=== PATIENT | female | born 1955 | race Native Hawaiian/Other Pacific Islander ===

== ENCOUNTER → 2016-09-15 | Outpatient (CLI) | payer OTHER ==
[2016-09-15 10:40] LABS: Basophils # (auto) 0 uL; Basophils % (auto) 0.3 % (0.0-2.0); Eosinophils # (auto) 0.3 uL; Hematocrit 45.2 % (36.0-46.0); Hemoglobin 15.4 g/dL (12.2-16.2); Lymphocytes # (auto) 1.8 uL; Lymphocytes % (auto) 18.5 % (10.0-50.0); Mean Corpuscular Hemoglobin 30.8 pg (28.0-32.0); Mean Corpuscular Volume 90.4 fL (80.0-100.0); Mean Platelet Volume 8.8 fL (7.4-10.4); Monocytes # (auto) 0.5 uL; Monocytes % (auto) 4.5 % (0.0-12.0); Neutrophils # (auto) 7.4 uL; Neutrophils % (auto) 73.7 % (37.0-80.0); Platelet Count (auto) 354 10^3/uL (140-450); Red Cell Distribution Width 11.9 % (11.6-16.0)
[2016-09-15 10:52] LABS: Urine Bilirubin Negative (Negative); Urine Blood Negative /uL (Negative); Urine Color Yellow (Yellow); Urine Glucose Normal (Normal); Urine Ketone Negative (Negative); Urine Mucus FEW (None Seen); Urine Nitrite Negative (Negative); Urine RBC <1 /hpf (0 - 4); Urine Squamous Epithelial Cell FEW /hpf (<5)
[2016-09-15 11:08] LABS: Albumin 3.6 g/dL (3.4-5.0); Bilirubin, Total 0.5 mg/dL (0.2-1.0); Calcium 9.3 mg/dL (8.5-10.1); Potassium 3.3 mmol/L (3.5-5.1); Total Protein 8.7 g/dL (6.4-8.2)
== END | disposition home or self-care (01) ==
LOC: LAB 09:55
PROVIDERS: ATTEND Internal Medicine
DX: Z00.00 Encounter for general adult medical examination without abnormal findings (principal); I10 Essential (primary) hypertension; E78.5 Hyperlipidemia, unspecified; E11.9 Type 2 diabetes mellitus without complications; E55.9 Vitamin D deficiency, unspecified
CPT/HCPCS: 36415; 80053; 80061; 81001; 82043; 82306; 83036; 84439; 84443; 84481; 85025

== ENCOUNTER → 2017-03-10 | Outpatient (CLI) | payer OTHER ==
[2017-03-10 09:41] LABS: Albumin 3.9 g/dL (3.4-5.0); BUN/Creatinine Ratio 18.5; Bilirubin, Total 0.7 mg/dL (0.2-1.0); Calcium 9.4 mg/dL (8.5-10.1); Potassium 3.5 mmol/L (3.5-5.1); Total Protein 8.4 g/dL (6.4-8.2); Urine Bacteria NONE SEEN /hpf (None Seen); Urine Blood Negative /uL (Negative); Urine Mucus FEW (None Seen); Urine Specific Gravity 1.019 (1.001-1.035); Urine WBC <1 /hpf (0 - 5)
== END | disposition home or self-care (01) ==
LOC: LAB 08:41
PROVIDERS: ATTEND Internal Medicine
DX: I10 Essential (primary) hypertension (principal); E11.9 Type 2 diabetes mellitus without complications; E78.2 Mixed hyperlipidemia
CPT/HCPCS: 36415; 80053; 80061; 81001; 83036

== ENCOUNTER 2022-06-30 12:11 | Inpatient (IN) | payer OTHER ==
[~2022-06-30] VITALS: Ht 165.1 cm; Wt 80.1 kg
[2022-06-30] MEDS ORDERED: ASPirin 81 mg TAB PO ONE (12:30)
[2022-06-30 12:38] LABS: Basophils # (auto) 0.1 10 ^3/uL (0-0.2); Basophils % (auto) 0.7 % (0.0-2.0); Eosinophils # (auto) 0.1 10 ^3/uL (0-0.8); Eosinophils % (auto) 0.7 % (0.0-7.0); Hematocrit 38.2 % (36.0-46.0); Hemoglobin 13.6 g/dL (12.2-16.2); Lymphocytes # (auto) 1.8 10 ^3/uL (0.4-5.4); Lymphocytes % (auto) 13.7 % (10.0-50.0); Mean Corpuscular Hemoglobin 31.6 pg (28.0-32.0); Mean Corpuscular Hgb Conc. 35.5 g/dL (32.0-36.0); Monocytes # (auto) 0.3 10 ^3/uL (0-1.3); Monocytes % (auto) 2.6 % (0.0-12.0); Neutrophils # (auto) 10.5 10 ^3/uL (1.6-8.6); Neutrophils % (auto) 82.3 % (37.0-80.0); Nucleated Red Blood Cells % 0.1 %; Red Cell Distribution Width 12.5 % (11.8-14.3); White Blood Cell 12.8 10^3/uL (4.4-10.8)
[2022-06-30 12:54] LABS: Albumin 3.6 g/dL (3.4-5.0); BUN/Creatinine Ratio 19.8; Calcium 9.2 mg/dL (8.5-10.1); Magnesium 1.5 mg/dL (1.6-2.6); Potassium 3.4 mmol/L (3.5-5.1)
[2022-06-30 12:57] LABS: Bilirubin, Total 1.5 mg/dL (0.2-1.0)
[2022-06-30] MEDS ORDERED: MORPHINE SULFATE INJ 2 MG/ml SYRG IV ONE (15:30)
[2022-06-30] MEDS ORDERED: PIPERACILLIN-TAZOB 3.375GM 100 ML IV ONE (15:30)
[2022-06-30] MEDS ORDERED: ONDANSETRON HCL 4 MG/2 ML VIAL IV ONE (15:30)
[2022-06-30] MEDS ORDERED: D5W/SOD CHL 0.45%/KCL 20MEQ 1,000 ML IV ONE (16:15)
[2022-06-30] MEDS ORDERED: NITROGLYCERIN 0.4 MG SL TAB SL PRN (18:00)
[2022-06-30] MEDS ORDERED: MORPHINE SULFATE INJ 2 MG/ml SYRG IV PRN ×2 (18:00)
[2022-06-30] MEDS ORDERED: ONDANSETRON HCL 4 MG/2 ML VIAL IV PRN (18:00)
[2022-06-30 18:36] LABS: Urine Bacteria NONE SEEN /hpf (None Seen); Urine Blood Negative /uL (Negative); Urine Mucus FEW (None Seen); Urine Specific Gravity 1.019 (1.001-1.035); Urine WBC 2 /hpf (0 - 5)
[2022-06-30] MEDS: D5W/SOD CHL 0.45% 1,000 ML IV SCH (19:30)
[2022-06-30] MEDS: PIPERACILLIN-TAZOB 3.375GM 100 ML IV SCH (19:30)
[2022-06-30 19:51] LABS: INR 1.03 (0.9-1.15); Partial Thromboplastin Time 23.4 sec (24.6-33.4)
[2022-07-01] MEDS: PIPERACILLIN-TAZOB 3.375GM 100 ML IV SCH ×4 (00:15→18:16)
[2022-07-01 05:23] LABS: Basophils # (auto) 0 10 ^3/uL (0-0.2); Basophils % (auto) 0.1 % (0.0-2.0); Eosinophils # (auto) 0 10 ^3/uL (0-0.8); Eosinophils % (auto) 0.3 % (0.0-7.0); Hematocrit 35.1 % (36.0-46.0); Hemoglobin 12.4 g/dL (12.2-16.2); Lymphocytes # (auto) 0.7 10 ^3/uL (0.4-5.4); Lymphocytes % (auto) 5.3 % (10.0-50.0); Mean Corpuscular Hemoglobin 31.8 pg (28.0-32.0); Mean Corpuscular Hgb Conc. 35.4 g/dL (32.0-36.0); Mean Corpuscular Volume 89.9 fL (80.0-100.0); Monocytes # (auto) 0.7 10 ^3/uL (0-1.3); Monocytes % (auto) 5.8 % (0.0-12.0); Neutrophils # (auto) 10.9 10 ^3/uL (1.6-8.6); Neutrophils % (auto) 88.5 % (37.0-80.0); Red Cell Distribution Width 12.5 % (11.8-14.3); White Blood Cell 12.3 10^3/uL (4.4-10.8)
[2022-07-01 05:42] LABS: Albumin 3.2 g/dL (3.4-5.0); Calcium 8.3 mg/dL (8.5-10.1); Potassium 3.3 mmol/L (3.5-5.1)
[2022-07-01 05:46] LABS: BUN/Creatinine Ratio 15.6; Bilirubin, Total 3.8 mg/dL (0.2-1.0); Total Protein 6.7 g/dL (6.4-8.2)
[2022-07-01 08:55] LABS: Amylase 91 U/L (25-115); Lipase 316 U/L (73-393)
[2022-07-01] MEDS: D5W/SOD CHL 0.45% 1,000 ML IV SCH (11:14)
[2022-07-01] MEDS: POTASSIUM CHLORIDE 40 MEQ in SOD CHL 0.45% 1,000 ML IV SCH (13:09)
[2022-07-01] MEDS ORDERED: ASPI-325 PO (15:37)
[2022-07-01] MEDS ORDERED: METF-916 PO (15:37)
[2022-07-01] MEDS ORDERED: ATOR40TA52 PO (15:37)
[2022-07-01] MEDS ORDERED: LOSA100T30 PO (15:37)
[2022-07-01] MEDS ORDERED: AMLO-489 PO (15:37)
[2022-07-01 16:53] VITALS: BP 147/52
[2022-07-01 16:55] VITALS: BP 147/52
[2022-07-01 22:00] VITALS: BP 123/73
[2022-07-02] MEDS: PIPERACILLIN-TAZOB 3.375GM 100 ML IV SCH ×4 (00:27→18:46)
[2022-07-02] MEDS: D5W/SOD CHL 0.45% 1,000 ML IV SCH ×2 (03:20→20:00)
[2022-07-02 05:00] VITALS: BP 124/54
[2022-07-02 06:26] LABS: Basophils # (auto) 0 10 ^3/uL (0-0.2); Basophils % (auto) 0.4 % (0.0-2.0); Eosinophils # (auto) 0.3 10 ^3/uL (0-0.8); Eosinophils % (auto) 3.4 % (0.0-7.0); Hematocrit 37.6 % (36.0-46.0); Hemoglobin 13.4 g/dL (12.2-16.2); Lymphocytes # (auto) 1.1 10 ^3/uL (0.4-5.4); Lymphocytes % (auto) 13.5 % (10.0-50.0); Mean Corpuscular Hemoglobin 32.1 pg (28.0-32.0); Mean Corpuscular Hgb Conc. 35.6 g/dL (32.0-36.0); Mean Corpuscular Volume 90.1 fL (80.0-100.0); Monocytes # (auto) 0.5 10 ^3/uL (0-1.3); Monocytes % (auto) 5.7 % (0.0-12.0); Neutrophils # (auto) 6.1 10 ^3/uL (1.6-8.6); Red Blood Cells 4.17 10^6/uL (4.0-5.20); Red Cell Distribution Width 12.8 % (11.8-14.3); White Blood Cell 7.9 10^3/uL (4.4-10.8)
[2022-07-02 07:06] LABS: Albumin 3.6 g/dL (3.4-5.0); Potassium 3.5 mmol/L (3.5-5.1)
[2022-07-02 07:12] LABS: BUN/Creatinine Ratio 11.9; Bilirubin, Total 5.2 mg/dL (0.2-1.0); Total Protein 7.3 g/dL (6.4-8.2)
[2022-07-02 08:00] VITALS: BP_SYST 118; BP_SYST 136; BP_DIAS 61; BP_DIAS 79
[2022-07-02] MEDS: POTASSIUM CHLORIDE 40 MEQ in SOD CHL 0.45% 1,000 ML IV SCH ×2 (09:27→17:15)
[2022-07-02 14:16] VITALS: BP 125/62
[2022-07-02 16:30] VITALS: BP 145/66
[2022-07-02 22:00] VITALS: BP 153/60
[2022-07-03] MEDS: PIPERACILLIN-TAZOB 3.375GM 100 ML IV SCH ×5 (00:13→23:47)
[2022-07-03] MEDS: POTASSIUM CHLORIDE 40 MEQ in SOD CHL 0.45% 1,000 ML IV SCH (04:18)
[2022-07-03 05:00] VITALS: BP_SYST 132; BP_SYST 158; BP_DIAS 62; BP_DIAS 76
[2022-07-03 06:01] LABS: Basophils # (auto) 0.1 10 ^3/uL (0-0.2); Basophils % (auto) 0.9 % (0.0-2.0); Eosinophils # (auto) 0.2 10 ^3/uL (0-0.8); Eosinophils % (auto) 3.5 % (0.0-7.0); Hematocrit 37.2 % (36.0-46.0); Hemoglobin 12.9 g/dL (12.2-16.2); Lymphocytes # (auto) 1.4 10 ^3/uL (0.4-5.4); Lymphocytes % (auto) 21.7 % (10.0-50.0); Mean Corpuscular Hemoglobin 31.5 pg (28.0-32.0); Mean Corpuscular Hgb Conc. 34.6 g/dL (32.0-36.0); Mean Corpuscular Volume 91.1 fL (80.0-100.0); Monocytes # (auto) 0.5 10 ^3/uL (0-1.3); Monocytes % (auto) 8.2 % (0.0-12.0); Neutrophils # (auto) 4.1 10 ^3/uL (1.6-8.6); Neutrophils % (auto) 65.7 % (37.0-80.0); Nucleated Red Blood Cells % 0.1 %; Red Blood Cells 4.08 10^6/uL (4.0-5.20); Red Cell Distribution Width 12.6 % (11.8-14.3); White Blood Cell 6.3 10^3/uL (4.4-10.8)
[2022-07-03 06:19] LABS: Potassium 3.7 mmol/L (3.5-5.1)
[2022-07-03 06:29] LABS: Albumin 3.3 g/dL (3.4-5.0); BUN/Creatinine Ratio 12.5; Calcium 9.2 mg/dL (8.5-10.1)
[2022-07-03 06:57] LABS: Bilirubin, Total 2.5 mg/dL (0.2-1.0); Total Protein 7.4 g/dL (6.4-8.2)
[2022-07-03 08:33] VITALS: BP 147/66
[2022-07-03] MEDS: ASPirin 81 mg TAB PO SCH (09:33)
[2022-07-03] MEDS: LOSARTAN POTASSIUM 25 MG TAB PO SCH (09:35)
[2022-07-03] MEDS: amLODIPine BESYLATE 5 MG TAB PO SCH (09:36)
[2022-07-03 13:00] VITALS: BP_SYST 118; BP_SYST 136; BP_DIAS 72; BP_DIAS 79
[2022-07-03] MEDS: D5W/SOD CHL 0.45% 1,000 ML IV SCH (14:04)
[2022-07-03 17:00] VITALS: BP 166/70
[2022-07-03] MEDS ORDERED: hydrALAZINE HCL 20 MG/ML VL IV PRN ×2 (17:30→22:00)
[2022-07-03] MEDS: metFORMIN HYDROCHLORIDE 500 MG TAB PO SCH (18:17)
[2022-07-03] MEDS ORDERED: hydrALAZINE HCL 20 MG/ML VL IV ONE (22:00)
[2022-07-03 22:15] VITALS: BP 170/64
[2022-07-03] MEDS: ATORVASTATIN 20 MG TAB PO SCH (22:19)
[2022-07-03 23:20] VITALS: BP 152/77
[2022-07-04] MEDS: POTASSIUM CHLORIDE 40 MEQ in SOD CHL 0.45% 1,000 ML IV SCH ×2 (00:42→22:00)
[2022-07-04 05:00] VITALS: BP 133/59
[2022-07-04] MEDS: D5W/SOD CHL 0.45% 1,000 ML IV SCH ×2 (05:20→22:00)
[2022-07-04] MEDS: PIPERACILLIN-TAZOB 3.375GM 100 ML IV SCH ×3 (05:58→18:20)
[2022-07-04 06:02] LABS: Basophils # (auto) 0.1 10 ^3/uL (0-0.2); Eosinophils # (auto) 0.2 10 ^3/uL (0-0.8); Eosinophils % (auto) 2.7 % (0.0-7.0); Hematocrit 38.7 % (36.0-46.0); Hemoglobin 13.5 g/dL (12.2-16.2); Lymphocytes # (auto) 1.7 10 ^3/uL (0.4-5.4); Lymphocytes % (auto) 24.6 % (10.0-50.0); Mean Corpuscular Hemoglobin 31.8 pg (28.0-32.0); Mean Corpuscular Hgb Conc. 34.9 g/dL (32.0-36.0); Monocytes # (auto) 0.6 10 ^3/uL (0-1.3); Monocytes % (auto) 8.7 % (0.0-12.0); Neutrophils # (auto) 4.4 10 ^3/uL (1.6-8.6); Red Blood Cells 4.25 10^6/uL (4.0-5.20); Red Cell Distribution Width 12.8 % (11.8-14.3); White Blood Cell 6.9 10^3/uL (4.4-10.8)
[2022-07-04 06:21] LABS: Albumin 3.3 g/dL (3.4-5.0); Calcium 9.5 mg/dL (8.5-10.1)
[2022-07-04 06:25] LABS: Potassium 3.7 mmol/L (3.5-5.1)
[2022-07-04 06:26] LABS: Bilirubin, Total 2.2 mg/dL (0.2-1.0); Total Protein 7.6 g/dL (6.4-8.2)
[2022-07-04] MEDS ORDERED: hydrALAZINE HCL 20 MG/ML VL IV PRN (07:45)
[2022-07-04 08:19] VITALS: BP 124/48
[2022-07-04] MEDS: metFORMIN HYDROCHLORIDE 500 MG TAB PO SCH ×2 (09:46→18:20)
[2022-07-04] MEDS: ASPirin 81 mg TAB PO SCH (09:46)
[2022-07-04] MEDS: LOSARTAN POTASSIUM 25 MG TAB PO SCH (09:48)
[2022-07-04] MEDS: amLODIPine BESYLATE 5 MG TAB PO SCH (09:49)
[2022-07-04 12:41] VITALS: BP 138/65
[2022-07-04 17:12] VITALS: BP 143/60
[2022-07-04 21:55] VITALS: BP 162/69
[2022-07-04] MEDS: ATORVASTATIN 20 MG TAB PO SCH (22:00)
[2022-07-05] MEDS: PIPERACILLIN-TAZOB 3.375GM 100 ML IV SCH ×4 (00:04→18:15)
[2022-07-05 05:00] VITALS: BP 136/75
[2022-07-05 06:38] LABS: Potassium 3.8 mmol/L (3.5-5.1)
[2022-07-05 06:45] LABS: Albumin 3.4 g/dL (3.4-5.0); Calcium 9.2 mg/dL (8.5-10.1)
[2022-07-05 06:48] LABS: Bilirubin, Total 1.8 mg/dL (0.2-1.0); Total Protein 6.9 g/dL (6.4-8.2)
[2022-07-05 07:46] LABS: Basophils # (auto) 0.1 10 ^3/uL (0-0.2); Basophils % (auto) 0.9 % (0.0-2.0); Eosinophils # (auto) 0.2 10 ^3/uL (0-0.8); Eosinophils % (auto) 2.8 % (0.0-7.0); Hematocrit 39.3 % (36.0-46.0); Hemoglobin 13.3 g/dL (12.2-16.2); Lymphocytes # (auto) 1.8 10 ^3/uL (0.4-5.4); Lymphocytes % (auto) 28.8 % (10.0-50.0); Mean Corpuscular Hemoglobin 31.2 pg (28.0-32.0); Mean Corpuscular Hgb Conc. 33.9 g/dL (32.0-36.0); Mean Corpuscular Volume 91.9 fL (80.0-100.0); Monocytes # (auto) 0.5 10 ^3/uL (0-1.3); Monocytes % (auto) 8.4 % (0.0-12.0); Neutrophils # (auto) 3.7 10 ^3/uL (1.6-8.6); Neutrophils % (auto) 59.1 % (37.0-80.0); Red Blood Cells 4.27 10^6/uL (4.0-5.20); Red Cell Distribution Width 12.8 % (11.8-14.3); White Blood Cell 6.3 10^3/uL (4.4-10.8)
[2022-07-05 09:00] VITALS: BP 157/66
[2022-07-05] MEDS: metFORMIN HYDROCHLORIDE 500 MG TAB PO SCH ×2 (09:51→18:15)
[2022-07-05] MEDS: ASPirin 81 mg TAB PO SCH (09:51)
[2022-07-05] MEDS: amLODIPine BESYLATE 5 MG TAB PO SCH (09:51)
[2022-07-05] MEDS: LOSARTAN POTASSIUM 25 MG TAB PO SCH (09:52)
[2022-07-05 12:36] LABS: Hepatitis B Core IgM Negative
[2022-07-05 12:37] LABS: Hepatitis A Ab IgM Negative; Hepatitis C Antibody Negative (Negative)
[2022-07-05 12:37] LABS: Hepatitis A Ab IgM Negative
[2022-07-05 12:38] LABS: Hepatitis B Core IgM Negative; Hepatitis C Antibody Negative (Negative)
[2022-07-05 13:00] VITALS: BP 149/70
[2022-07-05] MEDS: D5W/SOD CHL 0.45% 1,000 ML IV SCH (14:40)
[2022-07-05 17:00] VITALS: BP 122/52
[2022-07-05] MEDS: POTASSIUM CHLORIDE 40 MEQ in SOD CHL 0.45% 1,000 ML IV SCH (17:30)
[2022-07-05] MEDS: ATORVASTATIN 20 MG TAB PO SCH (21:25)
[2022-07-05 21:33] VITALS: BP 153/71
[2022-07-06] MEDS: PIPERACILLIN-TAZOB 3.375GM 100 ML IV SCH ×3 (00:45→14:35)
[2022-07-06 06:20] LABS: Basophils # (auto) 0.1 10 ^3/uL (0-0.2); Basophils % (auto) 0.8 % (0.0-2.0); Eosinophils # (auto) 0.2 10 ^3/uL (0-0.8); Eosinophils % (auto) 1.8 % (0.0-7.0); Hematocrit 38.1 % (36.0-46.0); Hemoglobin 13.3 g/dL (12.2-16.2); Lymphocytes # (auto) 1.9 10 ^3/uL (0.4-5.4); Mean Corpuscular Hemoglobin 31.7 pg (28.0-32.0); Mean Corpuscular Volume 90.6 fL (80.0-100.0); Monocytes # (auto) 0.7 10 ^3/uL (0-1.3); Monocytes % (auto) 7.5 % (0.0-12.0); Neutrophils # (auto) 6.3 10 ^3/uL (1.6-8.6); Neutrophils % (auto) 68.9 % (37.0-80.0); Nucleated Red Blood Cells % 0.1 %; Red Blood Cells 4.21 10^6/uL (4.0-5.20); Red Cell Distribution Width 12.4 % (11.8-14.3); White Blood Cell 9.1 10^3/uL (4.4-10.8)
[2022-07-06 07:09] LABS: Albumin 3.6 g/dL (3.4-5.0); BUN/Creatinine Ratio 13.7; Bilirubin, Total 1.8 mg/dL (0.2-1.0); Calcium 9.2 mg/dL (8.5-10.1); Potassium 3.4 mmol/L (3.5-5.1); Total Protein 7.4 g/dL (6.4-8.2)
[2022-07-06 09:00] VITALS: BP 131/69
[2022-07-06] MEDS: ASPirin 81 mg TAB PO SCH (09:29)
[2022-07-06] MEDS: amLODIPine BESYLATE 5 MG TAB PO SCH (09:29)
[2022-07-06] MEDS: LOSARTAN POTASSIUM 25 MG TAB PO SCH (09:29)
[2022-07-06] MEDS: metFORMIN HYDROCHLORIDE 500 MG TAB PO SCH (09:30)
[2022-07-06 10:41] LABS: Albumin 3.6 g/dL (3.4-5.0); BUN/Creatinine Ratio 11.7; Bilirubin, Total 1.6 mg/dL (0.2-1.0); Calcium 9.2 mg/dL (8.5-10.1); Potassium 3.6 mmol/L (3.5-5.1); Total Protein 7.7 g/dL (6.4-8.2)
[2022-07-06 13:00] VITALS: BP 143/65
[2022-07-06] MEDS: POTASSIUM CHLORIDE 40 MEQ in SOD CHL 0.45% 1,000 ML IV SCH (13:54)
[2022-07-06 14:07] VITALS: BP 131/69
[2022-07-06 16:53] VITALS: BP 145/82
== END 2022-07-06 16:40 | disposition short-term general hospital (02) | DRG 444 ==
LOC: ER 12:11 → OVERFLOW 17:55 → OBSVTOIN 07-01 10:19 → WEST WING 07-01 16:04 → TELE-WESTW 07-04 16:36 → WEST WING 07-04 22:09
PROVIDERS: ADMIT Hospitalist; ATTEND Hospitalist
DX: K80.10 Calculus of gallbladder with chronic cholecystitis without obstruction (principal); K85.10 Biliary acute pancreatitis without necrosis or infection; E11.9 Type 2 diabetes mellitus without complications; I10 Essential (primary) hypertension; R79.89 Other specified abnormal findings of blood chemistry; K76.9 Liver disease, unspecified; E66.01 Morbid (severe) obesity due to excess calories; Z82.49 Family history of ischemic heart disease and other diseases of the circulatory system; Z87.442 Personal history of urinary calculi; Z98.51 Tubal ligation status; Z20.822 Contact with and (suspected) exposure to COVID-19
CPT/HCPCS: 36415; 71046; 74181; 76705; 78226; 80053; 80074; 81001; 82150; 82962; 83690; 83735; 84484; 85025; 85610; 85730; 86850; 86900; 86901; 87081; 87426; 93005; 93306; 96365; 96366; 96367; G0378; J2543